=== PATIENT | male | born 1945 | race Caucasian/White ===

== ENCOUNTER 2016-08-07 14:44 | Inpatient (IN) | payer MEDICARE, OTHER ==
[~2016-08-07] VITALS: Ht 171.4 cm; Wt 69.4 kg
[2016-08-07] MEDS ORDERED: ACETAMINOPHEN 325 MG TAB ONE (15:44)
[2016-08-07] MEDS ORDERED: ONDANSETRON 4 MG VIAL ONE (16:26)
[2016-08-07] MEDS ORDERED: DILAUDID 1 MG/ML AMP ONE (16:27)
[2016-08-07] MEDS ORDERED: SODIUM CHLORIDE 0.9% 1,000 ML ONE ×2 (16:27→19:35)
[2016-08-07] MEDS ORDERED: D5 NS 1000 ML IV SCH (21:50)
[2016-08-07] MEDS ORDERED: PHARMACY TO DOSE IV SCH (21:50)
[2016-08-07 21:55] VITALS: BP_SYST 138; BP_SYST 144; RESP 18; TEMP 97.6
[2016-08-07 21:58] VITALS: Ht 171.4 cm; Wt 69.4 kg
[2016-08-07] MEDS ORDERED: Furosemide 20 MG/2 ML VIAL IV ONE (22:35)
[2016-08-08] VITALS (19 sets, daily range): BP systolic 115–162; RESP 18–20; TEMP 98.4–103.1
[2016-08-08] MEDS: DEXTROSE 5% SALINE 0.45% 1,000 ML IV SCH
[2016-08-08] MEDS ORDERED: ACETAMINOPHEN 325 MG TAB ONE (00:28)
[2016-08-08] MEDS: ACETAMINOPHEN 325 MG TAB PO PRN ×2 (02:22→15:08)
[2016-08-08] MEDS: DILAUDID 1 MG/ML AMP IV PRN ×4 (02:52→21:35)
[2016-08-08] MEDS: MORPHINE 100 MG PO SCH ×2 (07:36→21:34)
[2016-08-08] MEDS ORDERED: MISSING DOSE XX ONE (08:05)
[2016-08-08] MEDS: NEB-ALBUTEROL 2.5 MG/3 ML INH SCH ×3 (09:08→23:30)
[2016-08-08] MEDS: LEVETIRACETAM 500 MG TAB PO SCH ×2 (09:45→21:34)
[2016-08-08] MEDS: FLUTICASONE 0.05% NA BTL NARE EACH SCH (09:45)
[2016-08-08] MEDS: METOPROLOL TART 25 MG TAB PO SCH ×2 (09:45→21:33)
[2016-08-08] MEDS: FOLIC ACID 1 MG TAB PO SCH (09:45)
[2016-08-08] MEDS: PANTOPRAZOLE 40 MG TAB PO SCH (21:34)
[2016-08-09 02:30] VITALS: BP_SYST 158; RESP 16; TEMP 101.2
[2016-08-09] MEDS: DEXTROSE 5% SALINE 0.45% 1,000 ML IV SCH (03:41)
[2016-08-09] MEDS: DILAUDID 1 MG/ML AMP IV PRN ×3 (03:44→20:12)
[2016-08-09] MEDS: NEB-ALBUTEROL 2.5 MG/3 ML INH SCH ×2 (07:00→14:27)
[2016-08-09 07:19] VITALS: BP_SYST 160; RESP 16; TEMP 100.5
[2016-08-09] MEDS: LEVETIRACETAM 500 MG TAB PO SCH ×2 (08:46→21:26)
[2016-08-09] MEDS: FOLIC ACID 1 MG TAB PO SCH (08:47)
[2016-08-09] MEDS: METOPROLOL TART 25 MG TAB PO SCH ×2 (08:47→21:26)
[2016-08-09] MEDS: MORPHINE 100 MG PO SCH ×2 (08:47→21:25)
[2016-08-09] MEDS: Hydrocodone/APAP 10/325 MG TAB PO PRN (08:48)
[2016-08-09] MEDS: FLUTICASONE 0.05% NA BTL NARE EACH SCH (08:55)
[2016-08-09 11:00] VITALS: BP_SYST 138; RESP 18; TEMP 99
[2016-08-09] MEDS ORDERED: KCL CR 20 MEQ TAB PO ONE (14:55)
[2016-08-09 15:08] VITALS: BP_SYST 132; RESP 16; TEMP 98.3
[2016-08-09 19:59] VITALS: BP_SYST 140; RESP 18; TEMP 100.9
[2016-08-09] MEDS: PANTOPRAZOLE 40 MG TAB PO SCH (21:25)
[2016-08-09] MEDS: ACETAMINOPHEN 325 MG TAB PO PRN (21:27)
[2016-08-09 23:15] VITALS: BP_SYST 98; RESP 16; TEMP 98.8
[2016-08-10] MEDS: NEB-ALBUTEROL 2.5 MG/3 ML INH SCH ×4 (00:12→23:49)
[2016-08-10] MEDS: DILAUDID 1 MG/ML AMP IV PRN ×5 (00:28→20:07)
[2016-08-10 03:13] VITALS: BP_SYST 122; TEMP 98.1
[2016-08-10] MEDS: DEXTROSE 5% SALINE 0.9% 1,000 ML IV SCH (05:41)
[2016-08-10 08:05] VITALS: BP_SYST 142; RESP 20; TEMP 99.6
[2016-08-10] MEDS: LEVETIRACETAM 500 MG TAB PO SCH ×2 (08:57→20:08)
[2016-08-10] MEDS: MORPHINE 100 MG PO SCH ×2 (08:58→20:08)
[2016-08-10] MEDS: Hydrocodone/APAP 10/325 MG TAB PO PRN ×2 (08:59→15:36)
[2016-08-10] MEDS: FOLIC ACID 1 MG TAB PO SCH (08:59)
[2016-08-10] MEDS: METOPROLOL TART 25 MG TAB PO SCH ×2 (08:59→20:07)
[2016-08-10] MEDS: FLUTICASONE 0.05% NA BTL NARE EACH SCH (09:01)
[2016-08-10 12:02] VITALS: BP_SYST 122; RESP 18; TEMP 98
[2016-08-10] MEDS ORDERED: KCL CR 20 MEQ TAB PO ONE (14:15)
[2016-08-10 15:22] VITALS: BP_SYST 142; RESP 20; TEMP 95.1
[2016-08-10] MEDS: PANTOPRAZOLE 40 MG TAB PO SCH (20:08)
[2016-08-10 20:54] VITALS: BP_SYST 124; RESP 18; TEMP 99.1
[2016-08-11] VITALS (7 sets, daily range): BP systolic 116–138; RESP 16–20; TEMP 96.5–99.8
[2016-08-11] MEDS: Hydrocodone/APAP 10/325 MG TAB PO PRN ×3 (00:44→21:19)
[2016-08-11] MEDS: DILAUDID 1 MG/ML AMP IV PRN ×6 (00:44→23:30)
[2016-08-11] MEDS: NEB-ALBUTEROL 2.5 MG/3 ML INH SCH ×3 (06:36→23:00)
[2016-08-11] MEDS: FLUTICASONE 0.05% NA BTL NARE EACH SCH (08:03)
[2016-08-11] MEDS: METOPROLOL TART 25 MG TAB PO SCH ×2 (08:03→21:15)
[2016-08-11] MEDS: LEVETIRACETAM 500 MG TAB PO SCH ×2 (08:03→21:17)
[2016-08-11] MEDS: FOLIC ACID 1 MG TAB PO SCH (08:03)
[2016-08-11] MEDS: MORPHINE 100 MG PO SCH ×2 (08:03→21:18)
[2016-08-11] MEDS ORDERED: FILGRASTIM 300 MCG SUBQ ONE (11:35)
[2016-08-11] MEDS: PANTOPRAZOLE 40 MG TAB PO SCH (21:18)
[2016-08-12] VITALS (11 sets, daily range): BP systolic 90–128; RESP 12–18; TEMP 97.1–98.3
[2016-08-12] MEDS: DILAUDID 1 MG/ML AMP IV PRN ×5 (03:27→20:08)
[2016-08-12] MEDS: Hydrocodone/APAP 10/325 MG TAB PO PRN (05:38)
[2016-08-12] MEDS: NEB-ALBUTEROL 2.5 MG/3 ML INH SCH ×3 (07:39→23:00)
[2016-08-12] MEDS: FOLIC ACID 1 MG TAB PO SCH (08:08)
[2016-08-12] MEDS: MORPHINE 100 MG PO SCH ×2 (08:08→20:46)
[2016-08-12] MEDS: METOPROLOL TART 25 MG TAB PO SCH ×2 (08:08→20:46)
[2016-08-12] MEDS: LEVETIRACETAM 500 MG TAB PO SCH ×2 (08:08→20:46)
[2016-08-12] MEDS: FLUTICASONE 0.05% NA BTL NARE EACH SCH (08:12)
[2016-08-12] MEDS: PANTOPRAZOLE 40 MG TAB PO SCH (20:46)
[2016-08-13] VITALS (11 sets, daily range): BP systolic 100–146; RESP 16–61; TEMP 95.7–98.7
[2016-08-13] MEDS: DILAUDID 1 MG/ML AMP IV PRN ×5 (00:43→20:02)
[2016-08-13] MEDS: NEB-ALBUTEROL 2.5 MG/3 ML INH SCH ×3 (05:01→22:15)
[2016-08-13] MEDS: LEVETIRACETAM 500 MG TAB PO SCH ×2 (09:20→21:59)
[2016-08-13] MEDS: FOLIC ACID 1 MG TAB PO SCH (09:20)
[2016-08-13] MEDS: MORPHINE 100 MG PO SCH ×2 (09:20→21:59)
[2016-08-13] MEDS: METOPROLOL TART 25 MG TAB PO SCH ×2 (09:20→21:59)
[2016-08-13] MEDS: FLUTICASONE 0.05% NA BTL NARE EACH SCH (09:21)
[2016-08-13] MEDS: Hydrocodone/APAP 10/325 MG TAB PO PRN (13:17)
[2016-08-13] MEDS: PANTOPRAZOLE 40 MG TAB PO SCH (22:00)
[2016-08-14] MEDS: DILAUDID 1 MG/ML AMP IV PRN ×5 (01:21→19:56)
[2016-08-14] MEDS: ZOLPIDEM 5 MG TAB PO PRN ×2 (01:56→22:12)
[2016-08-14] MEDS: NEB-ALBUTEROL 2.5 MG/3 ML INH SCH ×3 (07:00→23:00)
[2016-08-14 08:47] VITALS: BP_SYST 146; RESP 18; TEMP 97.9
[2016-08-14] MEDS: METOPROLOL TART 25 MG TAB PO SCH ×2 (09:13→19:55)
[2016-08-14] MEDS: LEVETIRACETAM 500 MG TAB PO SCH ×2 (09:13→19:55)
[2016-08-14] MEDS: FOLIC ACID 1 MG TAB PO SCH (09:13)
[2016-08-14] MEDS: Hydrocodone/APAP 10/325 MG TAB PO PRN ×2 (09:14→14:09)
[2016-08-14] MEDS: FLUTICASONE 0.05% NA BTL NARE EACH SCH (09:14)
[2016-08-14] MEDS: MORPHINE 100 MG PO SCH ×2 (10:11→22:12)
[2016-08-14 13:47] VITALS: BP_SYST 162; RESP 18; TEMP 98.8
[2016-08-14 19:24] VITALS: BP_SYST 148; RESP 16; TEMP 97.7
[2016-08-14] MEDS: PANTOPRAZOLE 40 MG TAB PO SCH (19:55)
[2016-08-14 22:46] VITALS: BP_SYST 140; RESP 16; TEMP 97.6
[2016-08-15] MEDS: DILAUDID 1 MG/ML AMP IV PRN ×6 (00:11→20:23)
[2016-08-15 02:51] VITALS: BP_SYST 118; RESP 16; TEMP 97.6
[2016-08-15] MEDS: NEB-ALBUTEROL 2.5 MG/3 ML INH SCH ×3 (05:24→22:30)
[2016-08-15 07:38] VITALS: BP_SYST 142; RESP 18; TEMP 97.8
[2016-08-15] MEDS: FOLIC ACID 1 MG TAB PO SCH (08:11)
[2016-08-15] MEDS: FLUTICASONE 0.05% NA BTL NARE EACH SCH (08:11)
[2016-08-15] MEDS: MORPHINE 100 MG PO SCH ×2 (08:12→21:58)
[2016-08-15] MEDS: LEVETIRACETAM 500 MG TAB PO SCH ×2 (08:12→20:22)
[2016-08-15] MEDS: METOPROLOL TART 25 MG TAB PO SCH ×2 (08:12→20:22)
[2016-08-15] MEDS: DEXTROSE 5% SALINE 0.9% 1,000 ML IV SCH (10:08)
[2016-08-15] MEDS: Hydrocodone/APAP 10/325 MG TAB PO PRN (10:15)
[2016-08-15 11:14] VITALS: BP_SYST 138; RESP 18; TEMP 98.6
[2016-08-15 15:56] VITALS: BP_SYST 136; RESP 20; TEMP 98.2
[2016-08-15] MEDS: LEVOFLOXACIN 500 MG TAB PO SCH (16:34)
[2016-08-15] MEDS: PANTOPRAZOLE 40 MG TAB PO SCH (20:22)
[2016-08-15 20:25] VITALS: BP_SYST 164; RESP 20; TEMP 97.7
[2016-08-15] MEDS: ZOLPIDEM 5 MG TAB PO PRN (21:58)
[2016-08-15 23:10] VITALS: BP_SYST 140; RESP 18; TEMP 98
[2016-08-16] MEDS: DILAUDID 1 MG/ML AMP IV PRN ×6 (00:31→20:47)
[2016-08-16 05:02] VITALS: BP_SYST 148; RESP 20; TEMP 97.8
[2016-08-16] MEDS: NEB-ALBUTEROL 2.5 MG/3 ML INH SCH ×4 (07:00→21:00)
[2016-08-16 07:35] VITALS: BP_SYST 138; RESP 20; TEMP 96.5
[2016-08-16] MEDS: METOPROLOL TART 25 MG TAB PO SCH ×2 (07:46→20:46)
[2016-08-16] MEDS: MORPHINE 100 MG PO SCH ×2 (07:46→20:46)
[2016-08-16] MEDS: LEVETIRACETAM 500 MG TAB PO SCH ×2 (07:47→20:46)
[2016-08-16] MEDS: FOLIC ACID 1 MG TAB PO SCH (07:47)
[2016-08-16] MEDS: Hydrocodone/APAP 10/325 MG TAB PO PRN ×2 (07:47→14:59)
[2016-08-16] MEDS: FLUTICASONE 0.05% NA BTL NARE EACH SCH (07:48)
[2016-08-16] MEDS ORDERED: MISSING DOSE XX ONE (08:15)
[2016-08-16] MEDS: LEVOFLOXACIN 500 MG TAB PO SCH (09:43)
[2016-08-16] MEDS ORDERED: ONDANSETRON 4 MG VIAL IV PUSH PRN (12:15)
[2016-08-16 15:52] VITALS: BP_SYST 120; RESP 18; TEMP 97.3
[2016-08-16] MEDS: DEXTROSE 5% SALINE 0.9% 1,000 ML IV SCH (16:43)
[2016-08-16] MEDS: PANTOPRAZOLE 40 MG TAB PO SCH (20:45)
[2016-08-16 23:25] VITALS: BP_SYST 124; RESP 18; TEMP 98.2
[2016-08-17] MEDS: DILAUDID 1 MG/ML AMP IV PRN ×4 (00:54→12:59)
[2016-08-17] MEDS: ZOLPIDEM 5 MG TAB PO PRN (00:58)
[2016-08-17 02:59] VITALS: BP_SYST 142; RESP 18; TEMP 98.3
[2016-08-17 03:04] VITALS: BP_SYST 138; RESP 18; TEMP 97
[2016-08-17] MEDS: NEB-ALBUTEROL 2.5 MG/3 ML INH SCH (07:00)
[2016-08-17 08:12] VITALS: BP_SYST 122; RESP 18; TEMP 97.4
[2016-08-17] MEDS: FLUTICASONE 0.05% NA BTL NARE EACH SCH (09:01)
[2016-08-17] MEDS: MORPHINE 100 MG PO SCH (09:02)
[2016-08-17] MEDS: LEVOFLOXACIN 500 MG TAB PO SCH (09:03)
[2016-08-17] MEDS: LEVETIRACETAM 500 MG TAB PO SCH (09:03)
[2016-08-17] MEDS: METOPROLOL TART 25 MG TAB PO SCH (09:03)
[2016-08-17] MEDS: FOLIC ACID 1 MG TAB PO SCH (09:04)
[2016-08-17 10:10] VITALS: BP_SYST 122; RESP 14; TEMP 97.4
[2016-08-17] MEDS: Hydrocodone/APAP 10/325 MG TAB PO PRN (11:05)
[2016-08-17 11:12] VITALS: BP_SYST 140; RESP 18; TEMP 97.3
[2016-08-17 13:38] VITALS: BP_SYST 140; RESP 18; TEMP 97.3
== END 2016-08-17 13:58 | disposition home or self-care (01) | DRG 809 ==
LOC: ENRESERVDT → ENRESERVTM → ER 14:44 → EMR 19:36 → ENPENDDIS 19:36 → 4THW 21:21 → 4NT 08-12 15:27
PROVIDERS: ADMIT Internal Medicine Hematology & Oncology; ATTEND Internal Medicine Hematology & Oncology
DX: D70.9 Neutropenia, unspecified (principal); C92.Z0 Other myeloid leukemia not having achieved remission; D47.1 Chronic myeloproliferative disease; R50.81 Fever presenting with conditions classified elsewhere; G40.909 Epilepsy, unspecified, not intractable, without status epilepticus; G89.4 Chronic pain syndrome; I10 Essential (primary) hypertension; Z86.718 Personal history of other venous thrombosis and embolism; Z86.711 Personal history of pulmonary embolism; F41.9 Anxiety disorder, unspecified; D46.20 Refractory anemia with excess of blasts, unspecified; Z87.891 Personal history of nicotine dependence; Z79.51 Long term (current) use of inhaled steroids; E87.6 Hypokalemia; R91.1 Solitary pulmonary nodule
CPT/HCPCS: 36430; 71010; 80048; 80053; 85007; 85025; 85027; 86850; 86900; 86901; 86923; 93005; 94640; 94799; 96361; 96365; 96375

== ENCOUNTER 2016-08-29 15:59 | Observation (INO) | payer MEDICARE, OTHER ==
[~2016-08-29] VITALS: Ht 170.2 cm; Wt 64.7 kg
[2016-08-29] MEDS ORDERED: MAG HYDROX 30 ML UDC PO PRN (20:00)
[2016-08-29] MEDS ORDERED: Furosemide 40 MG/4 ML VIAL IV ONE (20:00)
[2016-08-29] MEDS ORDERED: ALU/MAG/SIM 30 ML UDC PO PRN (20:00)
[2016-08-29] MEDS ORDERED: ONDANSETRON 4 MG VIAL IV PRN (20:00)
[2016-08-29] MEDS ORDERED: ACETAMINOPHEN 325 MG TAB PO PRN (20:00)
[2016-08-29] MEDS ORDERED: SODIUM CHLORIDE 0.45% 1,000 ML IV SCH ×2 (20:00→20:05)
[2016-08-29] MEDS ORDERED: ZOLPIDEM 5 MG TAB PO PRN (20:00)
[2016-08-29 20:14] VITALS: BP_SYST 116; BP_SYST 118; RESP 20; TEMP 97.6; Ht 170.2 cm; Wt 64.7 kg
[2016-08-29] MEDS ORDERED: Hydrocodone/APAP 10/325 MG TAB PO PRN (20:55)
[2016-08-29] MEDS ORDERED: DUONEB INH PRN (20:55)
[2016-08-29] MEDS: LEVOFLOXACIN 500 MG TAB PO SCH (20:55)
[2016-08-29] MEDS: MORPHINE 100 MG PO SCH (21:00)
[2016-08-29] MEDS: LEVETIRACETAM 500 MG TAB PO SCH (22:21)
[2016-08-29 22:30] VITALS: BP_SYST 130; RESP 20; TEMP 97.4
[2016-08-29 22:45] VITALS: BP_SYST 132; RESP 20; TEMP 97.6
[2016-08-29 23:00] VITALS: BP_SYST 136; RESP 20; TEMP 98.1
[2016-08-29 23:58] VITALS: BP_SYST 142; RESP 20; TEMP 98.4
[2016-08-30] VITALS (17 sets, daily range): BP systolic 122–148; RESP 18–20; TEMP 95.9–98.5
[2016-08-30] MEDS: DILAUDID 1 MG/ML AMP IV PRN ×3 (02:28→10:03)
[2016-08-30] MEDS ORDERED: PANTOPRAZOLE 40 MG TAB PO SCH (07:00)
[2016-08-30] MEDS: LEVETIRACETAM 500 MG TAB PO SCH (08:28)
[2016-08-30] MEDS: MORPHINE 100 MG PO SCH (08:28)
[2016-08-30] MEDS ORDERED: MISSING DOSE XX ONE (08:30)
[2016-08-30] MEDS: LEVOFLOXACIN 500 MG TAB PO SCH (08:46)
[2016-08-30] MEDS ORDERED: FOLIC ACID 1 MG TAB PO SCH (09:00)
[2016-08-30] MEDS ORDERED: FLUTICASONE 0.05% NA BTL NARE EACH SCH (09:00)
== END 2016-08-30 10:11 | disposition home or self-care (01) ==
LOC: CANRESERV → ENRESERVDT → ENRESERVTM → 4NT 18:41 → ENPENDDIS 18:41
PROVIDERS: ADMIT Internal Medicine Hematology & Oncology; ATTEND Internal Medicine Hematology & Oncology
DX: D61.818 Other pancytopenia (principal); D46.9 Myelodysplastic syndrome, unspecified; G40.909 Epilepsy, unspecified, not intractable, without status epilepticus; M47.9 Spondylosis, unspecified; Z86.718 Personal history of other venous thrombosis and embolism; G89.4 Chronic pain syndrome; Z98.1 Arthrodesis status; R91.1 Solitary pulmonary nodule; I10 Essential (primary) hypertension
CPT/HCPCS: 36430; 80048; 80053; 85025; 86850; 86900; 86901; 86923; 86945; 97799; G0378; J1170; P9016